=== PATIENT | female | born 1940 | race Hispanic/Latino ===

== ENCOUNTER 2018-10-19 12:21 | Inpatient (IN) | payer MEDICARE ==
[~2018-10-19] VITALS: Ht 157.5 cm; Wt 69.4 kg
[2018-10-19] MEDS ORDERED: PANTOPRAZOLE SO20 MG PO (13:50)
[2018-10-19] MEDS ORDERED: PROPRANOLOL HCL10 MG PO (13:50)
[2018-10-19 13:57] LABS: BILIRUBIN,URINE NEGATIVE (NEGATIVE); CLARITY,URINE SL CLOUDY (CLEAR); COLOR,URINE YELLOW (YELLOW); KETONES,URINE NEGATIVE (NEGATIVE); LEUKOCYTE ESTERASE ,URINE TRACE (NEGATIVE); NITRITE,URINE NEGATIVE (NEGATIVE); PROTEIN,URINE DIPSTICK NEGATIVE (NEGATIVE); URINE UROBILINOGEN 0.2 mg/dL (0.2 - 1)
[2018-10-19 13:59] LABS: BASOPHILS # (AUTO) 0.1 (0.0-0.1); BASOPHILS % 1.6 % (0.0-1.0); EOSINOPHILS # (AUTO) 0.2 (0.0-0.4); EOSINOPHILS % 3.7 % (0.0-6.0); HEMATOCRIT 28.8 % (34.2-44.1); HEMOGLOBIN 10.1 g/dL (12.0-16.0); LYMPHOCYTES # (AUTO) 1.2 (1.0-3.2); LYMPHOCYTES % 20.8 % (18.0-39.1); MEAN CORPUSCULAR HEMOGLOBIN 34.6 pg (28-32); MEAN CORPUSCULAR HGB CONC 35.1 g/dL (31-35); MEAN CORPUSCULAR VOLUME 98.6 fL (81-99); MONOCYTES # (AUTO) 1.1 (0.2-0.8); MONOCYTES % 20.1 % (4.4-11.3); NEUTROPHILS % 53.6 % (38.7-80.0); PLATELET COUNT 241 x10e3/uL (140-360); RED BLOOD COUNT 2.92 x10e6/uL (3.6-5.1); RED CELL DISTRIBUTION WIDTH 13.4 % (11.7-14.4)
[2018-10-19 14:01] LABS: INR 1.24; PROTHROMBIN TIME 16.2 seconds (11.9-14.5)
[2018-10-19 14:02] LABS: PARTIAL THROMBOPLASTIN TIME 39.1 seconds (23.8-35.5)
[2018-10-19 14:09] LABS: ALANINE AMINOTRANSFERASE 20 IU/L (0-55); ALBUMIN 2.7 g/dL (3.5-5.0); ALBUMIN/GLOBULIN RATIO 0.8 (0.8-2.0); ALKALINE PHOSPHATASE 77 IU/L (40-150); ANION GAP 11.6 mmol/L (8-16); BLOOD UREA NITROGEN 29 mg/dL (7-26); BUN/CREATININE RATIO 18 (6-25); CARBON DIOXIDE 18 mmol/L (22-29); CHLORIDE 104 mmol/L (98-107); CREATININE, SERUM 1.64 mg/dL (0.57-1.11); EST GLOMERULAR FILTRATION RATE 30 ML/MIN (60-); GLUCOSE 81 mg/dL (74-118); SODIUM 126 mmol/L (136-145)
[2018-10-19 14:13] LABS: POTASSIUM 7.6 mmol/L (3.5-5.1)
[2018-10-19 14:22] LABS: BACTERIA,URINE MANY /HPF; EPITHELIAL CELLS,URINE MODERATE /LPF; RBC,URINE 0-5 /HPF (0-5)
[2018-10-19] MEDS ORDERED: DEXTROSE 50% SYRINGE 50 ML IV ONE (14:26)
[2018-10-19] MEDS ORDERED: SODIUM BICARBONATE 8.4% 50 ML VIAL IV ONE (14:26)
--- NOTE | 2018-10-19 14:28 | Diagnostic Imaging Report ---
Examination: Single AP view of the chest. COMPARISON: None. INDICATION: Chest pain DISCUSSION: The lungs are well-inflated. No focal airspace consolidation, pleural effusion, or pneumothorax. Irregular, dense nodular opacities projecting adjacent to the cardiac apex may reflect calcific changes of the anterior costochondral junction. Atherosclerotic calcification of the thoracic aorta. Otherwise normal heart size. No pulmonary edema. No acute osseous abnormality. IMPRESSION: Dense nodular opacities adjacent to the cardiac apex may reflect costochondral calcifications or calcified granulomata. Follow-up PA and lateral chest radiographs are suggested when clinically feasible for further evaluation. Otherwise no acute cardiopulmonary abnormality. Signed by: Dr. Sandeep Wright M.D. on 10/19/2018 2:24 PM
[2018-10-19] MEDS ORDERED: INSULIN REGULAR, HUMAN 100 UNIT/1 ML 3ML VIAL IV ONE (14:30)
[2018-10-19] MEDS ORDERED: CALCIUM GLUCONATE 10% INJ 4.65 MEQ in SODIUM CHLORIDE 0.9% 50ML 50 ML IV ONE (14:30)
--- NOTE | 2018-10-19 14:39 | NUR ---
Dr. River states to repeat K+ before administered any ordered medications. Repeat blood sent to lab.
--- NOTE | 2018-10-19 15:29 | Diagnostic Imaging Report ---
EXAMINATION: CT of the abdomen and pelvis without contrast. TECHNIQUE: Spiral CT images of the abdomen and pelvis were performed from the lung bases to the lesser trochanters. No intravenous contrast was given per renal stone protocol. Coronal and sagittal reformatted images were obtained. COMPARISON: None. CLINICAL HISTORY:Abdominal distention, cirrhosis DISCUSSION: ABSENCE OF INTRAVENOUS CONTRAST DECREASES SENSITIVITY FOR DETECTION OF FOCAL LESIONS AND VASCULAR PATHOLOGY. ABDOMEN/PELVIS: LOWER THORAX: Opacity adjacent to the cardiac apex on the comparison chest radiograph is shown to represent a small diaphragmatic hernia containing omental fat and ascitic fluid. 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 Lung bases are otherwise unremarkable. Mitral annular calcifications. HEPATOBILIARY:Shrunken nodular liver with relative hypertrophy of the left lobe compatible with cirrhosis. 2.5 cm low-attenuation lesion in segment 6-7, average internal attenuation-type 10 Hounsfield units, likely a simple cyst but incompletely characterized in the absence of intravenous contrast. The gallbladder has been removed. No biliary dilatation. Plastic stent traverses the distal common bile duct and terminates in the duodenum. SPLEEN: No splenomegaly. PANCREAS: No focal masses or ductal dilatation. ADRENALS: No adrenal nodules. KIDNEYS/URETERS: Probable simple cyst left lower pole, average attenuation 5-10 Hounsfield units, though incompletely characterized in the absence of intravenous contrast. No hydronephrosis or calculi. PELVIC ORGANS/BLADDER: Urinary bladder is poorly distended and incompletely evaluated. Uterus is not identified and has presumably been removed. PERITONEUM/RETROPERITONEUM: Large volume ascites. No pneumoperitoneum. LYMPH NODES: No intra-abdominal,retroperitoneal, pelvic or inguinal lymphadenopathy. VESSELS: Limited evaluation without intravenous contrast. The abdominal aorta is not aneurysmal. Probable esophageal varices. GI TRACT: The large bowel is notable for scattered descending and sigmoid colon diverticula without gross wall thickening. The ascending and transverse colon is collapsed and poorly evaluated. No small bowel dilatation to suggest obstruction. BONES AND SOFT TISSUES: Umbilical hernia contains ascitic fluid. Mild anasarca. No osseous destructive lesions. Multiple calcified soft tissue injection granulomata. IMPRESSION: Cirrhosis with portal hypertension evidenced by large volume ascites and probable esophageal varices, poorly evaluated without intravenous contrast. Probable hepatic and left renal cyst, incompletely evaluated without intravenous contrast. Liver mass protocol CT or MRI of the abdomen on outpatient basis is suggested for further evaluation. Large bowel diverticulosis without evidence of diverticulitis. Atherosclerotic vascular disease. Signed by: Dr. Sandeep Wright M.D. on 10/19/2018 3:25 PM
--- NOTE | 2018-10-19 15:57 | NUR ---
Consent obtained and with official gripper installer [id number] through [employer] link.
[2018-10-19] MEDS ORDERED: ONDANSETRON HCL INJ 2MG/ML 2ML 2 MG/ML VIAL IV PRN (16:30)
--- NOTE | 2018-10-19 17:11 | NUR ---
[facility].
--- OUTSIDE RECORDS SUMMARY | 2018-10-19 17:12 | XMS REPORT ---
[facility] Address Unknown Phone Unavailable Care Team Providers Care Wire Steward Name Role Phone Maribel SMITH Unavailable Unavailable Problems This patient has no known problems. Allergies, Adverse Reactions, Alerts This patient has no known allergies or adverse reactions. Medications This patient has no known medications. Results Test Description Test Time Test Comments Text Results Atomic Results Result Comments CT ABDOMEN/PELVIS WO 2018-10-19 15:09:00 [facility] [address] [place], [place] [address] Patient Name: KRZYSZTOF OSULLIVAN MR #: [id number] : 1940 Age/Sex: 77/F Req #: [id number] Adm Physician: Ordered by: IRENA SMITH MD Report #: [id number] Location: ER Room/Bed: Procedure: [id number] CT/CT ABDOMEN/PELVIS WO Exam Date: 10/19/18 Exam Time: 1448 REPORT STATUS: Signed EXAMINATION: CT of the abdomen and pelvis without cont rast. TECHNIQUE: Spiral CT images of the abdomen and pelvis were performed from the lung bases to the lesser trochanters. No intravenous contrast was given per renal stone protocol. Coronal and sagittal reformatted images were obtained. COMPARISON: None. CLINICAL HISTORY:Abdominal distention, cirrhosis DISCUSSION: ABSENCE OF INTRAVENOUS CONTRAST DECREASES SENSITIVITY FOR DETECTION OF FOCAL LESIONS AND VASCULAR PATHOLOGY. ABDOMEN/PELVIS: LOWER THORAX: Opacity adjacent to the cardiac apex on the comparison chest radiograph is shown to represent a small diaphragmatic hernia containing omental fat and ascitic fluid. 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 Lung bases are otherwise unremarkable. Mitral annular calcifications. HEPATOBILIARY:Shrunken nodular liver with relative hypertrophy of the left lobe compatible with cirrhosis. 2.5 cm low-attenuation lesion in segment 6-7, average internal attenuation-type 10 Hounsfield units, likely a simple cyst but incompletely characterized in the absence of intravenous contrast. The gallbladder has been removed. No biliary dilatation. Plastic stent traverses the distal common bile duct and terminates in the duodenum. SPLEEN: No splenomegaly. PANCREAS: No focal masses or ductal dilatation. ADRENALS: No adrenal nodules. KIDNEYS/URETERS: Probable simple cyst left lower pole, average attenuation 5-10 Hounsfield units, though incompletely characterized in the absence of intravenous contrast. No hydronephrosis or calculi. PELVIC ORGANS/BLADDER: Urinary bladder is poorly distended and incompletely evaluated. Uterus is not identified and has presumably been removed. PERITONEUM/RETROPERITONEUM: Large volume ascites. No pneumoperitoneum. LYMPH NODES: No intra-abdominal,retroperitoneal, pelvic or inguinal lymphadenopathy. VESSELS: Limited evaluation without intravenous contrast. The abdominal aorta is not aneurysmal. Probable esophageal varices. GI TRACT: The large bowel is notable for scattered descending and sigmoid colon diverticula without gross wall thickening. The ascending and transverse colon is collapsed and poorly evaluated. No small bowel dilatation to suggest obstruction. BONES AND SOFT TISSUES: Umbilical hernia contains ascitic fluid. Mild anasarca. No osseous destructive lesions. Multiple calcified soft tissue injection granulomata. IMPRESSION: Cirrhosis with portal hypertension evidenced by large volume ascites and probable esophageal varices, poorly evaluated without intravenous contrast. Probable hepatic and left renal cyst, incompletely evaluated without intravenous contrast. Liver mass protocol CT or MRI of the abdomen on outpatient basis is suggested for further evaluation. Large bowel diverticulosis without evidence of diverticulitis. Atherosclerotic vascular disease. Signed by: Dr. Courtney Merino M.D. on 10/19/2018 3:25 PM Dictated By: COURTNEY MERINO MD 1525 Transcribed By: RADHA on 10/19/18 1525 COPY TO: IRENA SMITH MD CHEST SINGLE (PORTABLE) 2018-10-19 14:22:00 [facility] [address] [place] [address] Patient Name: KRZYSZTOF OSULLIVAN MR #: [id number] : 1940 Age/Sex: 77/F Req #: [id number] Adm Physician: Ordered by: IRENA SMITH MD Report #: [id number] Location: ER Room/Bed: Procedure: [id number] DX/CHEST SINGLE (PORTABLE) Exam Date: 10/19/18 Exam Time: 1340 REPORT STATUS: Signed Examination: Single AP view of the chest. COMP ARISON: None. INDICATION: Chest pain DISCUSSION: The lungs are well-inflated. No focal airspace consolidation, pleural effusion, or pneumothorax. Irregular, dense nodular opacities projecting adjacent to the cardiac apex may reflect calcific changes of the anterior costochondral junction. Atherosclerotic calcification of the thoracic aorta. Otherwise normal heart size. No pulmonary edema. No acute osseous abnormality. IMPRESSION: Dense nodular opacities adjacent to the cardiac apex may reflect costochondral calcifications or calcified granulomata. Follow-up PA and lateral chest radiographs are suggested when clinically feasible for further evaluation. Otherwise no acute cardiopulmonary abnormality. Signed by: Dr. Courtney Merino M.D. on 10/19/2018 2:24 PM Dictated By: COURTNEY MERINO MD 1428 Transcribed By: RADHA on 10/19/18 5935 COPY TO: IRENA SMITH MD
[2018-10-19] MEDS: CEFEPIME 2 GM/NS 0.9% 100 ML 100 ML IV SCH (17:24)
--- NOTE | 2018-10-19 17:28 | NUR ---
Consent for hemodialysis obtained at this time.
[2018-10-19] MEDS ORDERED: SODIUM BICARBONATE 8.4% 50 ML VIAL IV STA ×2 (17:36→17:42)
[2018-10-19] MEDS ORDERED: SODIUM BICARBONATE 8.4% SYRING 50 ML ONE (17:42)
[2018-10-19] MEDS ORDERED: SODIUM BICARBONATE 8.4% 150 ML in STERILE WATER IV SOLN 1,000 ML IV SCH (18:15)
[2018-10-19] MEDS ORDERED: SOD POLYSTYRENE SULFONATE SUSP 15 GM/60 ML BTL PO ONE (18:45)
[2018-10-19] MEDS ORDERED: LACTULOSE SYRUP 20 GM/30 ML UDC PO ONE (18:45)
--- NOTE | 2018-10-19 19:04 | NUR ---
[facility] called and asked for ETA for hemodialysis. Awaiting to call back.
--- NOTE | 2018-10-19 19:26 | NUR ---
Report to CECILIA Bah. Dialysis nurse at bedside.
[2018-10-19] MEDS ORDERED: SODIUM CHLORIDE 0.9% 1000ML 2,000 ML ONE (20:08)
[2018-10-19] MEDS ORDERED: MANNITOL 25% 12.5GM/50 ML VIAL IV ONE ×2 (21:00)
--- NOTE | 2018-10-19 21:00 | NUR ---
DIALYSIS NURSE AT BEDSIDE, DIALYSIS STATRTED VSS
[2018-10-19 21:08] LABS: CREATININE,URINE RANDOM 155.52 mg/dL (47-110)
[2018-10-19 21:10] LABS: SODIUM,URINE < 20 mmol/L
[2018-10-19] MEDS ORDERED: HEPARIN SOD (PORCINE) 1000 UNIT/ML SDV ONE (22:22)
[2018-10-19 23:00] LABS: CREATINE KINASE 51 IU/L (29-168)
[2018-10-19 23:02] LABS: CREATINE KINASE MB 1.1 ng/mL (0-5.0)
--- NOTE | 2018-10-19 23:25 | NUR ---
DIALYSIS COMPLETE, PT TOLERATED WELL, BP 98/63
[2018-10-20] VITALS (20 sets, daily range): BP systolic 85–115; BP diastolic 49–68
--- NOTE | 2018-10-20 00:41 | Consultation ---
DATE OF CONSULTATION: 10/19/2018 Most of the history from patient's malqivvc-un-upa and daughter. Several family members at bedside. HISTORY OF PRESENT ILLNESS: Maria L Montoya is a 77-year-old lady, who lives in [place]. She came here to visit her children. She is followed up with the liver center. 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 She gets frequent paracentesis. She also has an umbilical hernia. No history of diabetes, CVA, or MT. Apparently, they received a call from the their liver doctors in [place], who informed them that her potassium level was elevated, which is why they brought into the hospital. The patient awake, alert, resting comfortably, in no apparent distress. Her initial lab showed a potassium level of 7.6, which went up to 8.1. She received urgent treatment for high potassium in the emergency room. Furthermore, labs show sodium 126, bicarb 18, creatinine 1.64. BNP of 307. SOCIAL HISTORY: The patient does not smoke or drink. FAMILY HISTORY: Significant for hypertension. CURRENT MEDICATIONS: The patient received urgent treatment for hyperkalemia, also started on cefepime. PHYSICAL EXAMINATION: GENERAL: Awake, alert, and oriented x3, lying supine in bed, in no apparent distress. VITAL SIGNS: Blood pressure of 111/38, pulse rate 45, afebrile, respiratory rate 18. HEAD AND NECK: Cornea clear. Mild icterus noted if at all. Neck is flat. LUNGS: Relatively clear. No rales. HEART: S1, S2 audible. ABDOMEN: Otherwise soft, nontender, but distended. Umbilical hernia reducible. EXTREMITIES: Lower extremity, no edema. IMPRESSION AND PLAN: 1. Life-threatening hyperkalemia with acute kidney injury. Must rule out hepatorenal syndrome. Plan on urgent stat hemodialysis catheter placement and stat dialysis. We will start IV bicarbonate. 2. Hyponatremia, multifactorial, likely due to cirrhosis and portal hypertension. Mild distal RTA, multifactorial, must rule out infection. Abdomen is soft, although has evidence of ascites, so no urgent need for paracentesis at this point in time. Agree with antibiotics. We will start IV bicarbonate. Place a Nunez catheter. Send urine electrolytes. Must rule out hepatorenal syndrome. MD PATSY Ojeda/GEORGINA /[id number]
[2018-10-20 03:46] LABS: ANION GAP 12.3 mmol/L (8-16); CALCIUM 8.4 mg/dL (8.4-10.2); CREATININE, SERUM 1.29 mg/dL (0.57-1.11)
[2018-10-20 04:08] LABS: POTASSIUM 4.3 mmol/L (3.5-5.1)
[2018-10-20 04:30] LABS: BASOPHILS # (AUTO) 0.1 (0.0-0.1); EOSINOPHILS # (AUTO) 0.1 (0.0-0.4); EOSINOPHILS % 1.9 % (0.0-6.0); LYMPHOCYTES # (AUTO) 1.1 (1.0-3.2); LYMPHOCYTES % 16.2 % (18.0-39.1); MEAN CORPUSCULAR HEMOGLOBIN 34.9 pg (28-32); MEAN CORPUSCULAR VOLUME 96.9 fL (81-99); MONOCYTES # (AUTO) 1.4 (0.2-0.8); MONOCYTES % 19.4 % (4.4-11.3); NEUTROPHILS # (AUTO) 4.3 (2.1-6.9); NEUTROPHILS % 61.2 % (38.7-80.0); PLATELET COUNT 179 x10e3/uL (140-360); RED BLOOD COUNT 2.58 x10e6/uL (3.6-5.1); RED CELL DISTRIBUTION WIDTH 13.5 % (11.7-14.4)
[2018-10-20] MEDS: CEFEPIME 2 GM/NS 0.9% 100 ML 100 ML IV SCH ×2 (04:40→15:56)
[2018-10-20 04:53] LABS: ALBUMIN 2.4 g/dL (3.5-5.0); ALBUMIN/GLOBULIN RATIO 0.9 (0.8-2.0); ANION GAP 13.4 mmol/L (8-16); CALCIUM 8.4 mg/dL (8.4-10.2); CREATININE, SERUM 1.32 mg/dL (0.57-1.11); POTASSIUM 4.4 mmol/L (3.5-5.1)
[2018-10-20 04:55] LABS: CREATINE KINASE MB 1.1 ng/mL (0-5.0)
[2018-10-20] MEDS ORDERED: ACETAMINOPHEN 325 MG TAB PO PRN (08:00)
[2018-10-20] MEDS: PANTOPRAZOLE SOD 40 MG TABEC PO SCH ×2 (08:13→15:56)
[2018-10-20] MEDS: DEXTROSE 5% 1,000 ML IV SCH ×2 (08:58→19:38)
[2018-10-20] MEDS ORDERED: NON-FORMULARY MEDICATION (Pantoprazole Sodium 40 MG) PO SCH (09:00)
[2018-10-20] MEDS ORDERED: FUROSEMIDE INJ 10 MG/ML 4 ML VIAL IV SCH (09:00)
[2018-10-20] MEDS ORDERED: PROPRANOLOL HCL 10 MG TAB PO SCH (09:00)
[2018-10-20 13:28] LABS: INR 1.35; PROTHROMBIN TIME 17.3 seconds (11.9-14.5)
[2018-10-20 13:29] LABS: PARTIAL THROMBOPLASTIN TIME 40.7 seconds (23.8-35.5)
--- NOTE | 2018-10-20 21:27 | NUR ---
Received report for positive cocci in clusters for patient, CHUYITA Means made aware.
[2018-10-21] VITALS (12 sets, daily range): BP systolic 89–106; BP diastolic 56–64
[2018-10-21] MEDS: CEFEPIME 2 GM/NS 0.9% 100 ML 100 ML IV SCH ×2 (05:24→16:20)
[2018-10-21] MEDS: DEXTROSE 5% 1,000 ML IV SCH ×3 (06:14→23:38)
[2018-10-21] MEDS ORDERED: ACETAMINOPHEN 325 MG TAB PO PRN (06:45)
[2018-10-21] MEDS ORDERED: ACETAMINOPHEN/CODEINE 300MG - 30MG TAB PO PRN (07:00)
[2018-10-21 07:03] LABS: BASOPHILS # (AUTO) 0.1 (0.0-0.1); BASOPHILS % 1.1 % (0.0-1.0); EOSINOPHILS # (AUTO) 0.3 (0.0-0.4); EOSINOPHILS % 3.8 % (0.0-6.0); HEMATOCRIT 24.2 % (34.2-44.1); HEMOGLOBIN 8.6 g/dL (12.0-16.0); LYMPHOCYTES # (AUTO) 1.3 (1.0-3.2); LYMPHOCYTES % 18.2 % (18.0-39.1); MEAN CORPUSCULAR HGB CONC 35.5 g/dL (31-35); MEAN CORPUSCULAR VOLUME 98.4 fL (81-99); MONOCYTES # (AUTO) 1.6 (0.2-0.8); MONOCYTES % 23.2 % (4.4-11.3); NEUTROPHILS # (AUTO) 3.7 (2.1-6.9); NEUTROPHILS % 53.4 % (38.7-80.0); PLATELET COUNT 149 x10e3/uL (140-360); RED BLOOD COUNT 2.46 x10e6/uL (3.6-5.1); RED CELL DISTRIBUTION WIDTH 13.4 % (11.7-14.4)
--- NOTE | 2018-10-21 07:17 | NUR ---
Patient endorsed to next shift for continuity of care.
[2018-10-21 07:23] LABS: ALBUMIN 2.1 g/dL (3.5-5.0); ALBUMIN/GLOBULIN RATIO 0.8 (0.8-2.0); ANION GAP 11.7 mmol/L (8-16); CALCIUM 7.9 mg/dL (8.4-10.2); CREATININE, SERUM 1.84 mg/dL (0.57-1.11); POTASSIUM 3.7 mmol/L (3.5-5.1)
[2018-10-21 08:03] LABS: FERRITIN 240.12 ng/mL (4.63-204.00)
[2018-10-21] MEDS: PANTOPRAZOLE SOD 40 MG TABEC PO SCH ×2 (09:29→16:20)
--- NOTE | 2018-10-21 13:40 | NUR ---
PATIENT ARRIVED TO ROOM 100 AT THIS TIME. FAMILY AT BEDSIDE. PATIENT IS IN STABLE CONDITION. NO ACUTE DISTRESS NOTED.
--- NOTE | 2018-10-21 19:07 | NUR ---
REPORT GIVEN TO ONCOMING NURSE. PATIENT IS RESTING IN BED. NO S/S OF PAIN NOTED. FAMILY AT BEDSIDE. CALL LIGHT WITHIN REACH. BED IN THE LOWEST POSITION.
[2018-10-21] MEDS ORDERED: MELATONIN 5 MG TABLET PO PRN (21:00)
[2018-10-22] VITALS (8 sets, daily range): BP systolic 91–115; BP diastolic 51–61
[2018-10-22] MEDS ORDERED: ZOLPIDEM TARTRATE 10 MG TAB PO PRN (04:15)
[2018-10-22] MEDS ORDERED: BISACODYL 5 MG TAB EC PO ONE (04:15)
[2018-10-22] MEDS: CEFEPIME 2 GM/NS 0.9% 100 ML 100 ML IV SCH ×2 (04:48→18:20)
[2018-10-22 05:55] LABS: BASOPHILS # (AUTO) 0.1 (0.0-0.1); BASOPHILS % 1.2 % (0.0-1.0); EOSINOPHILS # (AUTO) 0.3 (0.0-0.4); EOSINOPHILS % 4.8 % (0.0-6.0); LYMPHOCYTES # (AUTO) 1.3 (1.0-3.2); LYMPHOCYTES % 19.5 % (18.0-39.1); MEAN CORPUSCULAR HEMOGLOBIN 35.2 pg (28-32); MEAN CORPUSCULAR HGB CONC 36.4 g/dL (31-35); MEAN CORPUSCULAR VOLUME 96.9 fL (81-99); MONOCYTES # (AUTO) 1.4 (0.2-0.8); MONOCYTES % 20.2 % (4.4-11.3); NEUTROPHILS # (AUTO) 3.6 (2.1-6.9); NEUTROPHILS % 53.7 % (38.7-80.0); PLATELET COUNT 141 x10e3/uL (140-360); RED BLOOD COUNT 2.27 x10e6/uL (3.6-5.1); RED CELL DISTRIBUTION WIDTH 13.2 % (11.7-14.4)
[2018-10-22 06:09] LABS: ANION GAP 8.6 mmol/L (8-16); CALCIUM 7.6 mg/dL (8.4-10.2); CREATININE, SERUM 1.59 mg/dL (0.57-1.11); POTASSIUM 3.6 mmol/L (3.5-5.1)
[2018-10-22 06:30] LABS: ALBUMIN 1.9 g/dL (3.5-5.0); BILIRUBIN,DIRECT 0.9 mg/dL (0.0-0.5)
--- NOTE | 2018-10-22 06:44 | NUR ---
Dr. Valencia paged regarding lab values, message left with answering service
--- NOTE | 2018-10-22 07:10 | NUR ---
Pt received resting in bed. Alert and oriented x3 but Mauritanian speaking only. NPO for Paracentesis. Oriented to staff and surroundings. Encouraged to press call talamantes if help needed. Pt verbalized understanding of teaching. Will monitor
[2018-10-22] MEDS: PANTOPRAZOLE SOD 40 MG TABEC PO SCH ×2 (08:32→20:37)
--- NOTE | 2018-10-22 10:05 | NUR ---
Pt left for Paracentesis in bed.
--- NOTE | 2018-10-22 11:09 | NUR ---
EDUCATED ABOUT IMM, SIGNED, FILED IN CHART, WITH COPY LEFT WITH FAMILY AT BEDSIDE.
--- NOTE | 2018-10-22 11:12 | NUR ---
Pt returned to Unit s/p Paracentesis. 4.8L fluid pulled as per report
--- NOTE | 2018-10-22 11:28 | Diagnostic Imaging Report ---
Procedure: Ultrasound-guided diagnostic and therapeutic paracentesis rotary operator: Ritu Cordero MD Pre-operative diagnosis: Ascites Post-operative diagnosis: Ascites Conscious Sedation: The patient's heart rate and pulse oximetry were continuously monitored by the IR nurse. Additional Medications: Lidocaine 1% for local anesthesia Estimated blood loss: Minimal Specimens: 4800 cc of serous ascites Implants: None TECHNIQUE/FINDINGS: Informed consent was obtained from the patient and documented in the medical record. The patient was placed in the supine position. Initial ultrasound demonstrated ascites. The right lower abdomen was prepped and draped in standard sterile fashion. 1% lidocaine was infiltrated into the skin and subcutaneous tissues for local anesthesia. Then under continuous sonographic guidance, a 5 Fr One-step catheter was advanced into the peritoneal space. The catheter was connected to vacuum bottle with subsequent evacuation of 4800 cc of serous fluid. The catheter was removed. Dermabond and sterile dressing was applied. Sample was sent to the lab. The patient tolerated the procedure well. IMPRESSION: Ultrasound-guided paracentesis with removal of 4800 cc of serous fluid. Signed by: Ritu Cordero MD on 10/22/2018 11:25 AM
--- NOTE | 2018-10-22 18:56 | NUR ---
Pt's family requesting for Protonix to be given later because pt "just fell asleep". Will endorse to next shift
--- NOTE | 2018-10-22 19:28 | NUR ---
Pt resting in bed with family at bedside. Handoff given to oncoming nurse regarding removal of Trialysis cath.
[2018-10-22] MEDS ORDERED: SODIUM CHLORIDE 1 GM TAB PO SCH (21:00)
[2018-10-23] VITALS (9 sets, daily range): BP systolic 76–96; BP diastolic 50–60
[2018-10-23] MEDS ORDERED: MECLIZINE HCL 12.5 MG TAB PO ONE
[2018-10-23 04:05] LABS: BASOPHILS # (AUTO) 0.1 (0.0-0.1); BASOPHILS % 0.9 % (0.0-1.0); EOSINOPHILS # (AUTO) 0.3 (0.0-0.4); EOSINOPHILS % 4.3 % (0.0-6.0); HEMATOCRIT 23.9 % (34.2-44.1); HEMOGLOBIN 8.4 g/dL (12.0-16.0); LYMPHOCYTES # (AUTO) 1.3 (1.0-3.2); LYMPHOCYTES % 17.6 % (18.0-39.1); MEAN CORPUSCULAR HEMOGLOBIN 34.1 pg (28-32); MEAN CORPUSCULAR HGB CONC 35.1 g/dL (31-35); MEAN CORPUSCULAR VOLUME 97.2 fL (81-99); MONOCYTES # (AUTO) 1.3 (0.2-0.8); MONOCYTES % 16.9 % (4.4-11.3); NEUTROPHILS # (AUTO) 4.5 (2.1-6.9); NEUTROPHILS % 59.8 % (38.7-80.0); PLATELET COUNT 167 x10e3/uL (140-360); RED BLOOD COUNT 2.46 x10e6/uL (3.6-5.1); RED CELL DISTRIBUTION WIDTH 13.2 % (11.7-14.4)
[2018-10-23 04:14] LABS: ANION GAP 13.1 mmol/L (8-16); CALCIUM 7.6 mg/dL (8.4-10.2); CREATININE, SERUM 1.51 mg/dL (0.57-1.11); POTASSIUM 4.1 mmol/L (3.5-5.1)
[2018-10-23] MEDS ORDERED: SODIUM CHLORIDE 1 GM TAB PO SCH (04:45)
[2018-10-23] MEDS: MECLIZINE HCL 12.5 MG TAB PO SCH ×2 (05:08→12:39)
[2018-10-23] MEDS: CEFEPIME 2 GM/NS 0.9% 100 ML 100 ML IV SCH ×2 (05:08→17:00)
--- NOTE | 2018-10-23 05:30 | NUR ---
Dr. Bruno is covering for Dr. Valencia, informed him on critical lab value, no orders received at this time
--- NOTE | 2018-10-23 05:55 | Diagnostic Imaging Report ---
History:Dizziness Comparison studies:None Technique: Axial images were obtained from the skull base to the vertex. Coronal and sagittal images reconstructed from the axial data. Intravenous contrast: None Dose modulation, iterative reconstruction, and/or weight based adjustment of the mA/kV was utilized to reduce the radiation dose to as low as reasonably achievable. Findings: Scalp/skull: No abnormalities. Extra-axial spaces: No masses. No fluid collections. Brain sulci: Mildly prominent. Ventricles: Mild compensatory dilatation. No hydrocephalus. Parenchyma: Few hypodensities in the supratentorial white matter are small vessel ischemic changes. No masses, hemorrhage, acute or chronic cortical vascular insults. Sellar/suprasellar region: No abnormalities. Craniocervical junction: Patent foramen magnum. No Chiari one malformation. Incidental findings: Atherosclerotic calcifications in the carotid siphons . Impression: No acute abnormalities. Chronic findings: 1. Mild generalized volume loss. 2. Mild supratentorial white matter small vessel ischemic changes. Signed by: DR Albino Hardy M.D. on 10/23/2018 5:52 AM
--- NOTE | 2018-10-23 06:17 | Diagnostic Imaging Report ---
Abdomen/KUB INDICATION: ^CONSTIPATION, N/V ^[id number] ^0550 COMPARISON: CT abdomen/pelvis 10/11/2018. FINDINGS: Portable, supine image obtained at 0548 hours. Medical Devices: Common bile duct stent and cholecystectomy clips are stable. Bowel: Unremarkable bowel gas pattern. No dilated bowel loops. No pneumatosis. Mild amount of stool in the right colon. No significant amount of stool in the descending colon. Free air: None Calcifications: None over the renal shadows or along the expected course of the ureters Organomegaly: None Bones: Diffusely demineralized. No focal osseous lesions. IMPRESSION: Unremarkable bowel gas pattern. Signed by: Dr. Casey Melara MD on 10/23/2018 6:13 AM
[2018-10-23 07:05] LABS: FREE T4 (FREE THYROXINE) 0.8 ng/dL (0.8-1.8); THYROID STIMULATING HORMONE 6.148 uIU/mL (0.350-4.940)
--- NOTE | 2018-10-23 07:05 | NUR ---
pt asleep resp even and unlabored at time no distress noted pt easily aroused to name and touch, pt has family member at bedside. call light in reach.
--- NOTE | 2018-10-23 07:11 | NUR ---
Per order R IJ Trialysis cath d/c, removed catheter w/ tip intact, pressure gauze placed
[2018-10-23] MEDS: FUROSEMIDE 20 MG TAB PO SCH (08:38)
[2018-10-23] MEDS: MIDODRINE 2.5 MG TAB PO SCH ×3 (08:38→17:50)
[2018-10-23] MEDS: METOCLOPRAMIDE HCL 10 MG/2ML VIAL IV SCH ×4 (08:38→21:52)
[2018-10-23] MEDS: MEGESTROL ACETATE 40 MG TAB PO SCH ×2 (08:38→17:00)
[2018-10-23] MEDS: PANTOPRAZOLE SOD 40 MG TABEC PO SCH ×2 (08:38→17:00)
--- NOTE | 2018-10-23 10:54 | NUR ---
CALLED [facility] [phone] SPOKE WITH ATA, SHE STATES PATIENT DOES NOT HAVE OUT OF STATE BENEFITS AND THE PT IS REGISTERED IN THE [facility]. WAS GIVEN REFERENCE NUMBER [id number].
--- NOTE | 2018-10-23 12:22 | NUR ---
CM SPOKE TO PATIENT AND PATIENT DAUGHTER AT BEDSIDE REGARDING PATIENT DISCHARGE PLAN AND PLAN OF CARE. PATIENT CURRENTLY INDECISIVE WHETHER SHE IS STAYING IN [place] OR RETURNING TO [place] WITH DAUGHTER. DAUGHTER AT BEDSIDE REQUESTS FOR CM TO SPEAK WITH PATIENT OTHER DAUGHTER JOMAR REGARDING PLAN OF CARE AND DISCHARGE PLAN. CM CALLED AND LM FOR JOMAR TO RETURN CALL REGARDING PATIENT PLAN OF CARE AND DISCHARGE PLAN. JOMAR- DAUGHTER: [phone]. PENDING RETURN CALL FOR CM TO DISCUSS HOME HEALTH IN [place] OR RETURN TO [place] AND VISIT PCP FOR SNF VS. HOME HEALTH ORDERS.
[2018-10-23 13:15] LABS: ANION GAP 11.2 mmol/L (8-16); CALCIUM 7.6 mg/dL (8.4-10.2); CREATININE, SERUM 1.55 mg/dL (0.57-1.11); POTASSIUM 4.2 mmol/L (3.5-5.1)
[2018-10-23] MEDS ORDERED: SODIUM CHLORIDE 1 GM TAB PO NR (14:15)
[2018-10-23] MEDS ORDERED: SODIUM CHLORIDE 0.9% 1000ML 1,000 ML IV SCH (14:15)
--- NOTE | 2018-10-23 14:29 | NUR ---
bolus NS started orderer by ANGELO Bauman, sodium tablets given po 4 gram for critical value 115 sodium.
[2018-10-23] MEDS ORDERED: SODIUM CHLORIDE 1 GM TAB PO ONE (14:30)
[2018-10-23] MEDS ORDERED: FUROSEMIDE INJ 10 MG/ML 4 ML VIAL IV NR (15:30)
[2018-10-23] MEDS ORDERED: SODIUM CHLORIDE 0.45% IV SCH ×2 (15:30)
[2018-10-23] MEDS ORDERED: SODIUM BICARBONATE 8.4% IV SCH ×2 (15:30)
--- NOTE | 2018-10-23 16:52 | NUR ---
Nutrition Intervention Note RD Recommendation(s) for Physician: -Continue current diet as ordered -Rec adding Ensure Enlive BID to increase protein-calorie intake Plan of Care: RD following, monitoring for tolerance and adequacy, ONS rec Nutrition reason for involvement: MD consult no reason stated RD Assessment 10/23 - 77yo F, who was admitted for hyperkalemia. CT abd/ pel showed cirrhosis with portal hypertension evidenced by large volume ascites and probable esophageal varices. Pt has paracentesis yesterday with 4.8L fluids removed. Visited pt in the room. Pt was sleeping. Per family, pt was not eating well today with very little meal intake. No complains of nausea or vomiting. Normal BM. No chewing or swallowing difficulty reported. Family would like to try Ensure to see if pt would drink it. Will continue to monitor and follow. Principal Problems/Diagnoses: Hyperkalemia, ascites, cirrhosis, renal insufficiency PMH: liver failure GI: abdomen soft, non-tender, round, distended Skin: no pressure wound noted Labs: (10/23) Na 115 L, creatinine 1.55 H, Glucose 131 H, Ca 7.6 L Meds: reglan, lasix, protonix, abx Ht: 62in Wt: 153lb BMI: 28.0kg/m2 IBW: 110lb +/- 10% Malnutrition Evaluation (10/23/2018) The patient does not meet criteria for a specified degree of malnutrition at this time. Will re-evaluate at follow-up as appropriate. Nutrition Prescription (Diet Order): low sodium/ GI soft diet Estimated Nutritional Needs: Calories: 1250 1500kcal(25-30kcal/kg/d) Weight used: IBW Protein: 50-75g(1-1.5g/kg/d) Weight used: IBW Diet Adequacy: Not meeting calorie needs, Not meeting protein needs Diet Education Needs Assessment: Diet education indicated, but patient not appropriate for education at this time. Nutrition Care Level: low Nutrition Diagnosis: Inadequate energy intake related to current medical status as evidenced by PO <25% since admission. Goal: Patient will meet 75-100% of estimated needs by follow up Progress: Not progressing Interventions: Modified diet, Commercial beverage Monitoring/Evaluation: Total energy intake, Total protein intake, Modified diet, Liquid supplement, Weight change Signed: Malissa Bush MS, RD, LD
[2018-10-23] MEDS: SODIUM BICARBONATE 8.4% 100 ML in SODIUM CHLORIDE 0.45% 1,000 ML IV SCH (19:21)
--- NOTE | 2018-10-23 19:23 | NUR ---
report given to oncoming nurse, pt stable.
[2018-10-23] MEDS: SODIUM CHLORIDE 1 GM TAB PO SCH (21:52)
--- NOTE | 2018-10-23 23:09 | NUR ---
Family members requested for patient to be transferred to [facility]. The oldest son stated he would like for her to receive the same treatment that he had received. I did inform him although they both have the same disease process, doesn't necessarily mean that she will receive the same treatment, stated that he was okay with it and majority of the family members agreed for the patient to be transferred. However, Cecilia Montoya is the POA and had requested for her mom to only be transferred if it's what the recommends, she has been currently happy with the treatment here and would only agree if it's absolutely necessary, she is mostly concerned for her mom to get some rest. I did inform Dr. Doreen Oconnor and stated he was okay for the patient to be transferred to a higher acuity hospital, was advised to inform Dr. Henderson. Spoke ta/ CHUYITA Han who is covering Dr. Henderson, stated she was also okay with this, just to let Dr. Henderson know tomorrow during his rounds and provide him with the daughter's contact information.
[2018-10-24] VITALS (8 sets, daily range): BP systolic 82–110; BP diastolic 38–59
[2018-10-24] MEDS ORDERED: MIDODRINE 2.5 MG TAB PO ONE (01:00)
[2018-10-24 03:21] LABS: BASOPHILS # (AUTO) 0.1 (0.0-0.1); BASOPHILS % 1.2 % (0.0-1.0); EOSINOPHILS # (AUTO) 0.3 (0.0-0.4); EOSINOPHILS % 4.2 % (0.0-6.0); HEMOGLOBIN 8.2 g/dL (12.0-16.0); LYMPHOCYTES # (AUTO) 1.1 (1.0-3.2); LYMPHOCYTES % 16.3 % (18.0-39.1); MEAN CORPUSCULAR HEMOGLOBIN 34.5 pg (28-32); MEAN CORPUSCULAR HGB CONC 36.3 g/dL (31-35); MONOCYTES # (AUTO) 1.1 (0.2-0.8); MONOCYTES % 17.5 % (4.4-11.3); NEUTROPHILS # (AUTO) 3.9 (2.1-6.9); NEUTROPHILS % 60.2 % (38.7-80.0); PLATELET COUNT 163 x10e3/uL (140-360); RED BLOOD COUNT 2.38 x10e6/uL (3.6-5.1)
[2018-10-24 03:30] LABS: HEMATOCRIT 22.6 % (34.2-44.1)
[2018-10-24 03:37] LABS: ANION GAP 10.3 mmol/L (8-16); CALCIUM 7.3 mg/dL (8.4-10.2); CREATININE, SERUM 1.55 mg/dL (0.57-1.11); MAGNESIUM 1.3 MG/DL (1.3-2.1); POTASSIUM 4.3 mmol/L (3.5-5.1)
[2018-10-24] MEDS: CEFEPIME 2 GM/NS 0.9% 100 ML 100 ML IV SCH ×2 (04:28→16:46)
[2018-10-24] MEDS: LEVOTHYROXINE SODIUM 25 MCG TABLET PO SCH (06:04)
--- NOTE | 2018-10-24 07:00 | NUR ---
PT RESTING IN BED AA0X3. DAUGHTER IS AT BEDSIDE PT DENIES PAIN 0/10 IV FLUIDS TO THE RIGHT AC 20 WITH SODIUM BI AT 75CC.HR . SITE IS CLEAN AND DRY PT HAS A RHOADES CATH DRAINING NURY URINE. PT ABD IS DISTENDED (ASCITIC ) PT RUNNING SR ON TELEMETRY 02 AT 2L . NO SOB NOTED WILL CONTINUE TO MONITOR PT CLOSELY, SIDE RAILSX2, BED WHEELS LOCKED, CALL LIGHT IS WITHIN EASY REACH INSTRUCTED TO CALL FOR ASSISTANCE IF NEEDED
--- NOTE | 2018-10-24 07:11 | Diagnostic Imaging Report ---
Date and Time: 10/19/2018 Procedure: Image guided placement of nontunneled hemodialysis catheter. blind slat stapling machine operator: Dr. Wright Assistants: None Pre-operative diagnosis: Hyperkalemia, need for hemodialysis Post-operative diagnosis: Hyperkalemia, need for hemodialysis Conscious Sedation: None The patient's heart rate and pulse oximetry were continuously monitored. Additional Medications: Lidocaine 1% for local anesthesia Fluoroscopy time: 0.7 Dose-area Product: 0.93 Gycm2. Frontal Air Kerma: 4.24 mGy Contrast used: None Estimated blood loss: Minimal Specimens: None Implants: 13 Gambian, 15 cm triple-lumen hi flow central venous catheter DISCUSSION: Informed consent was obtained and documented in the medical record after discussion of risks and benefits. The patient was placed in the supine position on the fluoroscopic table. Preliminary sonographic evaluation confirmed patency of the right internal jugular vein, evidenced by compressibility. The right neck was prepped and draped in the standard sterile fashion. 1% lidocaine was infiltrated into the skin and subcutaneous tissues for local anesthesia. Then under continuous sonographic guidance, an 18-gauge singlewall needle was used to access the right internal jugular vein. A permanent sonographic image was stored in the medical record. A 0.0 3 5-in. wire was advanced centrally into the IVC under fluoroscopic guidance. The needle was removed over the wire and the tract was dilated. Then a 13 Gambian 15 cm triple-lumen hi flow central venous catheter was advanced over the wire to full depth. The wire was removed, and the catheter tip was positioned at the superior cavoatrial junction. Each lumen showed adequate bidirectional flow and was flushed with sterile saline. The catheter was secured to the skin with monofilament nylon suture and a sterile dressing was applied. The patient tolerated the procedure well without immediate complication. FINDINGS: Patent right internal jugular vein. IMPRESSION: Successful placement of a temporary hemodialysis catheter (13 Gambian, 15 cm Trialysis) by a right internal jugular approach under sonographic and fluoroscopic guidance. Signed by: Dr. Sandeep Wright M.D. on 10/24/2018 7:07 AM
[2018-10-24] MEDS: MEGESTROL ACETATE 40 MG TAB PO SCH ×2 (08:05→17:10)
[2018-10-24] MEDS: SODIUM CHLORIDE 1 GM TAB PO SCH ×3 (08:05→22:10)
[2018-10-24] MEDS: METOCLOPRAMIDE HCL 10 MG/2ML VIAL IV SCH ×4 (08:05→20:47)
[2018-10-24] MEDS: MIDODRINE 2.5 MG TAB PO SCH ×3 (08:05→17:10)
[2018-10-24] MEDS: FUROSEMIDE 20 MG TAB PO SCH (08:05)
[2018-10-24] MEDS: PANTOPRAZOLE SOD 40 MG TABEC PO SCH ×2 (08:05→17:10)
[2018-10-24 09:14] LABS: BODY FLUID APPEARANCE CLOUDY; BODY FLUID TYPE ASCITIES FLUID
[2018-10-24 09:15] LABS: RBC,BODY FLUID 6509 cells/uL; WBC,BODY FLUID 421 cells/uL
[2018-10-24 09:16] LABS: BODY FLUID COLOR STRAW
--- NOTE | 2018-10-24 09:21 | NUR ---
CM SPOKE TO PATIENT AND PATIENT DAUGHTER AT BEDSIDE REGARDING PATIENT DISCHARGE PLAN AND PLAN OF CARE. PATIENT AND PATIENT FAMILY CURRENTLY INDECISIVE WHETHER PATIENT WILL BE TRANSFERRING TO [facility] OR [facility]. PENDING RETURN CALL FROM JOMAR SANDOVAL CHOICE. JOMAR- DAUGHTER: [phone]. PENDING RETURN CALL FOR TO DISCUSS WHETHER PATIENT WILL BE TRANSFERRED TO [facility] OR [facility] FOR WORK UP DUE TO BEING ON LIVER TRANSPLANT LIST.
[2018-10-24] MEDS: SODIUM BICARBONATE 8.4% 100 ML in SODIUM CHLORIDE 0.45% 1,000 ML IV SCH (11:39)
--- NOTE | 2018-10-24 12:30 | NUR ---
CM SPOKE TO PATIENT PALMA HADLEY REGARDING TRANSFER TO EITHER [facility] OR [facility]. PATIENT PALMA AND HER BROTHER CHOSE [facility]. CM INITIATED TRANSFER WITH THE TRANSFER CENTER AND SPOKE TO PAZ. CHOICE LETTER SIGNED WITH TWO CONSENTS, MYSELF AND CM DIRECTOR SHIVANI ZHANG RN CM. CLINICAL (FACESHEET, H&P, 72 HR CLINICAL) SENT TO TRANSFER CENTER. PENDING AUTH AND BED FOR TRANSFER. [facility] [address] [place] [id number] (P)[phone] (F)[phone] MOT INITIATED AND GIVEN TO HAND UMBRELLA TIPPER.
[2018-10-24 12:48] LABS: LYMPHOCYTES,BODY FLUID 71 %; MONO/MACROPHG,BODY FLUID 2 %; NEUTROPHILS,BODY FLUID 6 %
[2018-10-24 12:51] LABS: OTHER CELLS,BODY FLUID 21 %
[2018-10-24 14:55] LABS: FOLATE 9.9 ng/mL (7.0-15.4)
--- NOTE | 2018-10-24 14:56 | NUR ---
PT C/O CONSTIPATION REQUESTING SUPPOSITORY NOTIFIED CHUYITA GRIMALDO. ORDERS FOR ORAL LAX GIVEN
[2018-10-24] MEDS ORDERED: BISACODYL 5 MG TAB EC PO ONE (15:30)
--- NOTE | 2018-10-24 15:47 | NUR ---
EDUCATED ABOUT IMM, SIGNED, FILED IN CHART, WITH COPY LEFT WITH FAMILY AT BEDSIDE.
--- NOTE | 2018-10-24 15:54 | NUR ---
GWENDOLYN SPOKE TO PATIENT PALMA HADLEY REGARDING PATIENT PLAN OF CARE AND DISCHARGE PLAN. PATIENT DAUGHTER / POA STATES THE PATIENT IS NOT CURRENTLY ON THE LIVER TRANSPLANT LIST BUT WAS LOOKING TO GET ON ONE IN [place]. PATIENT FAMILY WANTS A HIGHER LEVEL OF CARE THAT CAN ACCOMMODATE THE NEEDS OF THE PATIENT. IF [facility] IN THE MEDICAL CENTER DOES NOT ACCEPT PATIENT PLEASE PROVIDE ACUTE CARE FACILITIES TO THAT ARE ABLE TO TAKE PATIENT INSURANCE. JOMAR ALSO REQUESTS THAT ONE PERSON BE IN THE ROOM WITH THE PATIENT AT A TIME. PATIENT NEEDS REST PER FAMILY. PATIENT TO STAY IN [place] FOR NOW WITH MAJORITY OF DAUGHTERS UNTIL PATIENT IS HEALTHY AGAIN. POA #1: JOMAR: [phone] POA#2 (IF JOMAR UNABLE TO ANSWER): [phone]
[2018-10-24] MEDS: ONDANSETRON HCL 4 MG ORAL DISINTEGRATING TAB PO PRN ×2 (16:46→22:45)
[2018-10-24] MEDS ORDERED: MAGNESIUM SULFATE 2GM/50ML 50 ML IV ONE (17:00)
[2018-10-24] MEDS ORDERED: FUROSEMIDE INJ 10 MG/ML 2 ML VIAL IV ONE (17:30)
[2018-10-25] VITALS (16 sets, daily range): BP systolic 88–120; BP diastolic 49–64
--- NOTE | 2018-10-25 00:05 | NUR ---
SPOKE TO SEAN KIRAN WITH [facility]. PATIENT TRANSFER IS PENDING BED AVAILABILITY AND ACCEPTING MD AT [facility]. TRANSFER IS ALSO PENDING INSURANCE APPROVAL. ALL ABOVE COMMUNICATED WITH DR Doreen LEVY WHO SPOKE WITH FAMILY TO COMMUNICATE THE SAME. PER MD Doreen LEVY IF TRANSFER IS NOT ACCEPTED BY [facility] TOMORROW THEN TRANSFER SHOULD BE INITIATED WITH OUR [facility] IN THE [place]. PATIENT CHOICE LETTER DOES REFLECT SUCH A REQUEST PER POA PERMISSION. PM NURSE AWARE OF ALL OF THE ABOVE.
--- NOTE | 2018-10-25 00:14 | NUR ---
SPOKE TO DR. Doreen LEVY AT THIS TIME. NEW ORDERS RCV FOR ALBUMIN AND LACTULOSE.
[2018-10-25] MEDS ORDERED: ALBUMIN 25% 12.5GM 0.25 GM/ML BTL IV ONE (00:15)
[2018-10-25] MEDS: SODIUM BICARBONATE 8.4% 100 ML in SODIUM CHLORIDE 0.45% 1,000 ML IV SCH ×2 (04:02→13:22)
[2018-10-25 04:08] LABS: ALBUMIN 2.6 g/dL (3.5-5.0); ALBUMIN/GLOBULIN RATIO 1.1 (0.8-2.0); ANION GAP 14.3 mmol/L (8-16); CREATININE, SERUM 1.74 mg/dL (0.57-1.11); POTASSIUM 4.3 mmol/L (3.5-5.1)
[2018-10-25] MEDS: CEFEPIME 2 GM/NS 0.9% 100 ML 100 ML IV SCH ×2 (04:15→16:40)
[2018-10-25] MEDS: LEVOTHYROXINE SODIUM 25 MCG TABLET PO SCH (06:18)
[2018-10-25] MEDS ORDERED: CHLORPROMAZINE HCL 25 MG TAB PO PRN (07:00)
--- NOTE | 2018-10-25 07:29 | NUR ---
PAGED MD BLACKWELL FOR OK ON GIVING ALBUMIN AWAITING FOR CALL BACK
--- NOTE | 2018-10-25 07:33 | NUR ---
MD BLACKWELL OK DOSAGE ADM OF ALBUMIN
[2018-10-25] MEDS ORDERED: FUROSEMIDE INJ 10 MG/ML 2 ML VIAL IV ONE (07:45)
[2018-10-25] MEDS: MIDODRINE 2.5 MG TAB PO SCH ×3 (08:27→16:23)
[2018-10-25] MEDS: METOCLOPRAMIDE HCL 10 MG/2ML VIAL IV SCH ×4 (08:27→20:41)
[2018-10-25] MEDS: PANTOPRAZOLE SOD 40 MG TABEC PO SCH ×2 (08:27→16:23)
[2018-10-25] MEDS: FUROSEMIDE 20 MG TAB PO SCH (08:27)
[2018-10-25] MEDS: OYST-CAL-D 500MG TABLET PO SCH ×2 (08:27→16:23)
[2018-10-25] MEDS: LACTULOSE SYRUP 20 GM/30 ML UDC PO SCH ×2 (08:27→12:44)
[2018-10-25] MEDS: MEGESTROL ACETATE 40 MG TAB PO SCH ×2 (08:27→16:23)
[2018-10-25] MEDS: ALBUMIN 25% 12.5GM 0.25 GM/ML BTL IV SCH ×2 (08:27→14:08)
[2018-10-25] MEDS: SODIUM CHLORIDE 1 GM TAB PO SCH ×3 (08:28→20:41)
--- NOTE | 2018-10-25 11:42 | NUR ---
Call placed to transfer center at [facility]. Spoke with Vika at 1139. All information given. Will await for call back
--- NOTE | 2018-10-25 14:00 | NUR ---
JF DC PER MD BLACKWELL ORDER PT NOW ON DIAPER
--- NOTE | 2018-10-25 14:20 | NUR ---
PT FAM C/O OF FAM BEING DEHYDRATED AND WEAK PT HAD AROUND 5-6 BM OF DIARRHEA AFTER LACTULOSE ADMINISTRATION PT FAM REQUESTING AN ANTIDIARRHEAL. SPOKE TO DILLAN, ORDER FOR IMODIUM GIVEN V.S TAKEN AND 88/50 WITH HR OF 109, ALBUMIN IV DOSE STARTED AT THIS TIME WILL CONTINUE TO MONITOR CLOSELY
[2018-10-25] MEDS ORDERED: LOPERAMIDE HCL 2 MG CAP ONE (14:24)
[2018-10-25] MEDS ORDERED: LOPERAMIDE HCL 2 MG CAP PO ONE (14:35)
--- NOTE | 2018-10-25 14:37 | NUR ---
family of patient getting nervous about low BP. maps remaining in the 70's and albumin being given as volume finnish rubber with BP rising to 101/58. notified Merna NURSE ORTHO with Dr Henderson and received OK to transfer patient to ICU if condition deteriorates. will monitor status closely and proceed accordingly.
[2018-10-25] MEDS: ONDANSETRON HCL 4 MG ORAL DISINTEGRATING TAB PO PRN (15:25)
--- NOTE | 2018-10-25 16:27 | NUR ---
Spoke with Chantelle at [facility] and she informed that we are still pending insurance verification. Bed placement remains on hold. Staff to call back in the morning to verify
[2018-10-25] MEDS ORDERED: ALBUMIN 25% 12.5GM 50ML 100 ML IV ONE (20:00)
--- NOTE | 2018-10-25 20:19 | Consultation ---
DATE OF CONSULTATION: 10/25/2018 Pulmonary Critical Care Consultation CHIEF COMPLAINT: Low blood pressure and cirrhosis. HISTORY OF PRESENT ILLNESS: The patient is a 77-year-old woman. She has a history of cirrhosis, secondary to hemochromatosis. She has received frequent paracenteses in the past. Approximately two months ago, she relocated from [place] to [place] to be closer to her children. She came to the hospital on the with an elevated potassium. She required placement of a hemodialysis catheter and treatment of her hyperkalemia. She also received midodrine along with low-dose diuretics and lactulose for her liver disease. On the , she underwent a paracentesis and had almost 5 L of fluid had been removed. She has subsequently developed some hypotension and has required albumin. She also has hyponatremia and has required fluid restriction and sodium tablets. PAST MEDICAL HISTORY: 1. Cirrhosis, secondary to hemochromatosis. 2. Umbilical hernia. 3. Gastroesophageal reflux. 4. Hyponatremia. PAST SURGICAL HISTORY: Noncontributory. ALLERGIES: THERE ARE NO KNOWN DRUG ALLERGIES. FAMILY HISTORY: Family history is negative. Noncontributory. SOCIAL HISTORY: The patient recently relocated from [place]. She is not a drinker and she is not a smoker. REVIEW OF SYSTEMS: She has no fever. She has no headache. She complains of weakness. She has no neck pain. She has no chest pain. She is not complaining of difficulty breathing. She does have recurrent ascites. She has an umbilical hernia. She complains of pain and weakness in her legs. PHYSICAL EXAMINATION: VITAL SIGNS: The patient is afebrile. The blood pressure is 92/50 and the saturation is 100%. The pulse is 101. HEENT: Shows no facial swelling or erythema. The nasal mucosa is normal. The oropharynx is normal. LYMPHATIC: Shows no submandibular cervical or supraclavicular adenopathy. Auscultation of lungs shows decreased breath sounds at the bases. There is no wheezing. CARDIAC: Reveals a regular rate and rhythm with normal S1, S2. There are no murmurs or rubs. ABDOMEN: Distended. She does have ascites. EXTREMITIES: There is 1 to 2+ leg edema. NEUROLOGICAL: There is diffuse weakness, but no focal abnormalities. LABORATORY DATA: Sodium is 121. BUN to creatinine ratio is 30 to 1.74. The carbon dioxide is 21 and the hemoglobin is 8.1. The platelet count is 168. The PT is 17.3 and the INR is 1.35. The white blood cell count in the peritoneal fluid is 100 with 71% lymphocytes. IMPRESSION: 1. Cirrhosis with coagulopathy, ascites and portal hypertension. 2. Type 2 pattern renal syndrome. 3. Acute kidney injury. 4. Hyperkalemia. 5. Hyponatremia. 6. Coagulopathy. PLAN: 1. Continue albumin to maintain blood pressure. 2. Monitor urine output. 3. Continue lactulose and midodrine. 4. Case discussed with nursing staff on Med/Surg 1, nursing staff in ICU, and daughters. 5. Case was discussed with the patient. Bakari Ballesteros MD [facility]/MOD[facility] /[id number]
--- NOTE | 2018-10-25 21:05 | NUR ---
REPORT GIVEN TO TELLY BROOKS. PT TRANSFERRED TO ROOM 192 ICU. VITAL SIGNS STABLE
[2018-10-25] MEDS: OCTREOTIDE ACETATE 0.1 MG/ML 100MCG AMP SQ SCH (22:51)
[2018-10-26] VITALS (26 sets, daily range): BP systolic 71–123; BP diastolic 42–80
[2018-10-26 02:19] LABS: BILIRUBIN,URINE NEGATIVE (NEGATIVE); CLARITY,URINE CLEAR (CLEAR); COLOR,URINE YELLOW (YELLOW); KETONES,URINE 1+ (NEGATIVE); LEUKOCYTE ESTERASE ,URINE TRACE (NEGATIVE); NITRITE,URINE NEGATIVE (NEGATIVE); PROTEIN,URINE DIPSTICK 1+ (NEGATIVE); URINE UROBILINOGEN 0.2 mg/dL (0.2 - 1)
[2018-10-26] MEDS ORDERED: SODIUM CHLORIDE 0.9% 250ML 250 ML ONE ×3 (02:20→19:45)
[2018-10-26 02:43] LABS: BACTERIA,URINE MANY /HPF; EPITHELIAL CELLS,URINE MANY /LPF
--- NOTE | 2018-10-26 02:45 | NUR ---
Dr. Ballesteros also notified of spontaneous void x 1 and low urine output over last 2 hours after Nunez insertion.
--- NOTE | 2018-10-26 02:45 | NUR ---
Dr. Ballesteros notified of BP 70s/40s with MAP 53-58 and recent admin of albumin. Orders received for albumin IV. Updated MD on POC for paracentesis in AM. Per Dr. Ballesteros, hold parecentesis until BP more stable.
[2018-10-26] MEDS ORDERED: ALBUMIN 25% 12.5GM 0.25 GM/ML BTL IV ONE (03:00)
[2018-10-26] MEDS ORDERED: ALBUMIN 25% 12.5GM 0.25 GM/ML BTL IV SCH (03:00)
[2018-10-26] MEDS: CEFEPIME 2 GM/NS 0.9% 100 ML 100 ML IV SCH (04:03)
[2018-10-26 04:21] LABS: BASOPHILS # (AUTO) 0.1 (0.0-0.1); BASOPHILS % 0.8 % (0.0-1.0); EOSINOPHILS # (AUTO) 0.2 (0.0-0.4); EOSINOPHILS % 2.7 % (0.0-6.0); LYMPHOCYTES # (AUTO) 0.8 (1.0-3.2); LYMPHOCYTES % 12.9 % (18.0-39.1); MEAN CORPUSCULAR HGB CONC 36.5 g/dL (31-35); MONOCYTES % 16.3 % (4.4-11.3); NEUTROPHILS # (AUTO) 4.2 (2.1-6.9); PLATELET COUNT 114 x10e3/uL (140-360); RED BLOOD COUNT 1.77 x10e6/uL (3.6-5.1); RED CELL DISTRIBUTION WIDTH 13.2 % (11.7-14.4)
[2018-10-26 04:31] LABS: HEMOGLOBIN 6.2 g/dL (12.0-16.0)
[2018-10-26 04:38] LABS: ANION GAP 17.1 mmol/L (8-16); CALCIUM 8.9 mg/dL (8.4-10.2); CREATININE, SERUM 2.04 mg/dL (0.57-1.11); POTASSIUM 4.1 mmol/L (3.5-5.1)
--- NOTE | 2018-10-26 05:10 | NUR ---
Merna Martinez ON AIR DIRECTOR notified of critical Hgb level 6.2 ON AIR DIRECTOR ordered STAT recollect to verify results and to call with results. Merna ON AIR DIRECTOR also notified of low urine output. No new orders received.
--- NOTE | 2018-10-26 06:09 | Diagnostic Imaging Report ---
EXAMINATION: CHEST SINGLE (PORTABLE) COMPARISON: Chest x-ray/ INDICATION: ^Cirrhosis DISCUSSION: Frontal view of the chest obtained at 0532 hours. HEART AND MEDIASTINUM: Heart is top normal in size and stable. Calcifications of the aortic arch LINES: None. LUNGS: Low lung volumes with exaggerated central pulmonary vascular prominence. No pneumonia or interstitial edema. PLEURA: No large effusions. No pneumothorax. BONES AND SOFT TISSUES: No focal osseous lesion. The soft tissues are normal. IMPRESSION: Low lung volumes. No acute cardiopulmonary process. Signed by: Dr. Casey Melara MD on 10/26/2018 6:06 AM
[2018-10-26] MEDS: LEVOTHYROXINE SODIUM 25 MCG TABLET PO SCH (06:10)
[2018-10-26] MEDS: OCTREOTIDE ACETATE 0.1 MG/ML 100MCG AMP SQ SCH ×3 (06:10→20:44)
[2018-10-26 06:30] LABS: BASOPHILS # (AUTO) 0.1 (0.0-0.1); BASOPHILS % 0.9 % (0.0-1.0); EOSINOPHILS # (AUTO) 0.2 (0.0-0.4); EOSINOPHILS % 2.9 % (0.0-6.0); LYMPHOCYTES # (AUTO) 0.6 (1.0-3.2); LYMPHOCYTES % 9.6 % (18.0-39.1); MEAN CORPUSCULAR HEMOGLOBIN 34.9 pg (28-32); MEAN CORPUSCULAR HGB CONC 36.1 g/dL (31-35); MEAN CORPUSCULAR VOLUME 96.8 fL (81-99); MONOCYTES # (AUTO) 1.1 (0.2-0.8); MONOCYTES % 16.1 % (4.4-11.3); NEUTROPHILS # (AUTO) 4.6 (2.1-6.9); NEUTROPHILS % 70.2 % (38.7-80.0); PLATELET COUNT 113 x10e3/uL (140-360); RED BLOOD COUNT 1.89 x10e6/uL (3.6-5.1); RED CELL DISTRIBUTION WIDTH 13.3 % (11.7-14.4)
[2018-10-26 06:32] LABS: HEMATOCRIT 18.3 % (34.2-44.1); HEMOGLOBIN 6.6 g/dL (12.0-16.0)
--- NOTE | 2018-10-26 06:34 | NUR ---
Voicemail left at [address] Henderson/Merna regarding critical Hgb 6.6 for recollection.
[2018-10-26 06:35] LABS: ALBUMIN 3.7 g/dL (3.5-5.0); ALBUMIN/GLOBULIN RATIO 2.5 (0.8-2.0); CALCIUM 8.8 mg/dL (8.4-10.2); CREATININE, SERUM 2.07 mg/dL (0.57-1.11)
[2018-10-26] MEDS ORDERED: SODIUM CHLORIDE 0.9% 250ML 250 ML IV ONE (07:15)
[2018-10-26] MEDS ORDERED: FUROSEMIDE INJ 10 MG/ML 2 ML VIAL IV PRN (07:15)
--- NOTE | 2018-10-26 07:15 | NUR ---
Orders received from Miguelangel Milligan NP for blood transfusion regarding critical Hgb.
--- NOTE | 2018-10-26 08:41 | NUR ---
Pt transferred from MS1 to ICU for higher level of care. Will require new orders to resume PT. Thank you. Addendum: 10/26/18 at 0844 by GRETTA LONG LARRIMAN Amended: Links added.
[2018-10-26] MEDS: MIDODRINE 2.5 MG TAB PO SCH ×3 (08:42→16:00)
[2018-10-26] MEDS: METOCLOPRAMIDE HCL 10 MG/2ML VIAL IV SCH ×4 (08:42→20:44)
[2018-10-26] MEDS: PANTOPRAZOLE SOD 40 MG TABEC PO SCH ×2 (08:43→16:47)
[2018-10-26] MEDS: OYST-CAL-D 500MG TABLET PO SCH ×2 (08:43→16:46)
[2018-10-26] MEDS: SODIUM CHLORIDE 1 GM TAB PO SCH ×3 (08:43→20:48)
[2018-10-26] MEDS: MEGESTROL ACETATE 40 MG TAB PO SCH ×2 (08:43→16:46)
[2018-10-26] MEDS: ALBUMIN 25% 12.5GM 0.25 GM/ML BTL IV SCH ×3 (08:43→20:44)
[2018-10-26] MEDS: FUROSEMIDE 20 MG TAB PO SCH ×2 (09:00→13:00)
--- NOTE | 2018-10-26 09:44 | NUR ---
Spoke with Dr Valencia who advises to place a trialysis catheter. Dr Adriana cardona.
[2018-10-26] MEDS ORDERED: VASOPRESSIN 100 UNIT in DEXTROSE 5% 100ML 95 ML IV SCH (09:45)
--- NOTE | 2018-10-26 10:46 | Diagnostic Imaging Report ---
EXAMINATION: CHEST XRAY LINE PLACEMENT INDICATION: COMPARISON: FINDINGS: TUBES and LINES: Interval placement of right internal jugular dialysis catheter terminating near the superior cavoatrial junction. LUNGS: The lung volumes remain low. There is perihilar fullness and indistinctness of the pulmonary vasculature. PLEURA: No large pleural effusion. No pneumothorax. HEART AND MEDIASTINUM: Stable mild cardiac enlargement. Atherosclerotic calcifications of the thoracic aorta. BONES AND SOFT TISSUES: No acute fracture or dislocation. UPPER ABDOMEN: No free air under the diaphragm. IMPRESSION: Interval placement of right internal jugular trialysis catheter terminating at the superior cavoatrial junction. Low lung volumes with mild interstitial pulmonary edema. Signed by: Ritu Cordero MD on 10/26/2018 10:42 AM
--- NOTE | 2018-10-26 10:52 | Diagnostic Imaging Report ---
PROCEDURE:Ultrasound guided central venous catheter placement COMPARISON:Chest radiograph 10/26/2018. INDICATIONS:Anemia, acute kidney injury Post procedure diagnosis: Anemia, acute kidney injury Sedation/anesthesia: None Additional medications: Lidocaine 1% for local anesthesia Complications: No immediate Estimated blood loss: Minimal Blood products administered: None Implants/grafts: 13 [place] Citizen 15 cm triple-lumen high flow central venous catheter Specimens: None Condition at completion: Guarded Disposition: Remain in ICU Procedure in detail: Informed consent was obtained from the next of kin and documented in the medical record. The patient was placed in the supine position on the hospital bed. Preliminary sonographic evaluation confirmed patency of the right internal jugular vein, evidenced by compressibility. The right cervical region was then prepped and draped in standard sterile fashion. 1% lidocaine was infiltrated into the skin and subcutaneous tissues for local anesthesia. Then under continuous sonographic guidance an 18 gauge singlewall needle was advanced into the right internal jugular vein. A permanent sonographic image was stored in the medical record. A 0.035 guidewire was then advanced centrally with continuous cardiac rhythm monitoring. The needle was removed over the wire and the tract was serially dilated. Then a 13 [place] Citizen 15 cm triple-lumen hypo-central venous catheter was advanced over the wire to full depth. The wire was removed. Each lumen showed adequate bidirectional flow and was flushed with sterile saline. The catheter was secured to the skin with monofilament nylon suture and a sterile dressing was applied. The patient tolerated the procedure well without immediate complication. FINDINGS:Patent right internal jugular vein. CONCLUSION: Successful placement of a 13 [place] Citizen, 15 cm triple-lumen high flow central venous catheter (Trialysis catheter) via a right internal jugular approach under sonographic guidance. Post procedure chest radiograph will be obtained to confirm line positioning prior to use. Dictated by: Sandeep Wright M.D. on 10/26/2018 at 10:56 Electronically approved by: Sandeep Wright M.D. on 10/26/2018 at 10:56
--- NOTE | 2018-10-26 10:52 | Diagnostic Imaging Report ---
PROCEDURE:Ultrasound guided central venous catheter placement COMPARISON:Chest radiograph 10/26/2018. INDICATIONS:Anemia, acute kidney injury Post procedure diagnosis: Anemia, acute kidney injury Sedation/anesthesia: None Additional medications: Lidocaine 1% for local anesthesia Complications: No immediate Estimated blood loss: Minimal Blood products administered: None Implants/grafts: 13 Bahamian 15 cm triple-lumen high flow central venous catheter Specimens: None Condition at completion: Guarded Disposition: Remain in ICU Procedure in detail: Informed consent was obtained from the next of kin and documented in the medical record. The patient was placed in the supine position on the hospital bed. Preliminary sonographic evaluation confirmed patency of the right internal jugular vein, evidenced by compressibility. The right cervical region was then prepped and draped in standard sterile fashion. 1% lidocaine was infiltrated into the skin and subcutaneous tissues for local anesthesia. Then under continuous sonographic guidance an 18 gauge singlewall needle was advanced into the right internal jugular vein. A permanent sonographic image was stored in the medical record. A 0.035 guidewire was then advanced centrally with continuous cardiac rhythm monitoring. The needle was removed over the wire and the tract was serially dilated. Then a 13 Bahamian 15 cm triple-lumen hypo-central venous catheter was advanced over the wire to full depth. The wire was removed. Each lumen showed adequate bidirectional flow and was flushed with sterile saline. The catheter was secured to the skin with monofilament nylon suture and a sterile dressing was applied. The patient tolerated the procedure well without immediate complication. FINDINGS:Patent right internal jugular vein. CONCLUSION: Successful placement of a 13 Bahamian, 15 cm triple-lumen high flow central venous catheter (Trialysis catheter) via a right internal jugular approach under sonographic guidance. Post procedure chest radiograph will be obtained to confirm line positioning prior to use. Dictated by: Sandeep Wright M.D. on 10/26/2018 at 10:56 Electronically approved by: Sandeep Wright M.D. on 10/26/2018 at 10:56
--- NOTE | 2018-10-26 11:17 | Progress Note ---
DATE: 10/26/2018 SUBJECTIVE: The patient was transferred to the ICU yesterday. She is still hypotensive with a blood pressure of 77/45 after receiving albumin intermittently during the night. Her hemoglobin is 6.6 this morning and she is scheduled to receive packed red blood cells. The patient also complains of worsening ascites. She does not have fever. PHYSICAL EXAMINATION: VITAL SIGNS: The patient is afebrile. The blood pressure is 86/50 and the saturation is 98% on 2 L. HEENT: Shows no facial swelling or erythema. CARDIAC: Reveals a regular rate and rhythm with normal S1, S2. There are no murmurs or rubs heard. LUNGS: Auscultation of lungs reveals decreased breath sounds at the bases. ABDOMEN: Distended and there is significant ascites. EXTREMITIES: There is mild leg edema. LABORATORY DATA: Hemoglobin is 6.6 and the platelet count is 113. The white blood cell count is 6.6. The INR is 1.35. The BUN to creatinine ratio is 36:2.07. The sodium is 126. IMPRESSION: 1. 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 2. Type 2 hepatorenal syndrome. 3. Acute kidney injury. 4. Anemia secondary to chronic blood loss. 5. Hyponatremia. 6. Coagulopathy. PLAN: 1. The patient received 2 units of packed red blood cells today. 2. She will also have her diuretics held because of the low blood pressure. 3. We will continue the midodrine. 4. Continue to monitor creatinine. 5. Hold off on large volume paracentesis until the blood pressure stable. 6. Case discussed with three of the 13 children and with the patient. 7. Case discussed with nursing staff. 8. Case discussed with [place]. Greater than 35 minutes in direct critical care time. Bakari Ballesteros MD LM/GEORGINA /[id number]
[2018-10-26] MEDS: SODIUM BICARBONATE 8.4% 100 ML in SODIUM CHLORIDE 0.45% 1,000 ML IV SCH ×2 (12:00→21:44)
[2018-10-26] MEDS: ONDANSETRON HCL 4 MG ORAL DISINTEGRATING TAB PO PRN ×2 (13:13→22:29)
[2018-10-26] MEDS ORDERED: ALBUTEROL/IPRATROPIUM 3 ML NEB NEB PRN (13:15)
--- NOTE | 2018-10-26 13:17 | NUR ---
1140 [facility] called to deny the patient transfer; states that the insurance provided is out of network. [facility] called around the same time and stated they could not verify the benefits until Monday (10-29-2018); shelter case manager Damian notified as well as the patient's brother. Samantha Perez, RN also aware.
[2018-10-26] MEDS ORDERED: FUROSEMIDE INJ 10 MG/ML 2 ML VIAL IV ONE (14:00)
[2018-10-26 14:13] LABS: ABG PCO2 31 mmHg (41-51); ABG PO2 74 mmHg (80-105)
[2018-10-26 14:14] LABS: ABG HCO3 19 mmol/L (23-28)
--- NOTE | 2018-10-26 14:33 | NUR ---
SW WAS APPROACHED BY SON AND ASKING WHAT IS TAKING SO LONG WITH TRANSFER. WITH ASSISTANCE FROM KHLOE PA, CALLS WERE MADE AND FOUND TO BE DENIED FROM [facility] AND TO FOLLOW UP ON MONDAY. DAUGHTER CAME IN [place] AND SPOKE WITH DOCTOR VENKATESH. DAUGHTER FROM [place] IS THE POA AND STATES SHE DOESNT WANT THE OTHER FAMILY MEMBER CAUSING ISSUES WITH STAFF, SHE STATES HER MOTHER HAS BEEN ON TRANSPLANT LIST IN [place] FOR 3 WEEKS PRIOR TO COMING HERE. [facility] WAS ONLY COMING HERE FOR A 1 WEEK VACATION BUT MOTHER HAD TO COME TO HOSPITAL. SHE WANTS TO CONTINUE CARE HER AND IF SHE STABLIZES THEN WILL SEE ABOUT TAKING TO THE TRANSPLANT CENTER AT [facility].
--- NOTE | 2018-10-26 16:23 | NUR ---
jennifer pompa removed 2 bottles ~2L of fluid during paracentesis
--- NOTE | 2018-10-26 16:46 | Diagnostic Imaging Report ---
Procedure: Ultrasound-guided diagnostic and therapeuticparacentesis rotary drill rig operator: Ritu Cordero MD Pre-operative diagnosis: Ascites Post-operative diagnosis: Ascites Conscious Sedation: The patient's heart rate and pulse oximetry were continuously monitored by the IR nurse. Additional Medications: Lidocaine 1% for local anesthesia Estimated blood loss: Minimal Specimens: 2000 cc of serous ascites Implants: None TECHNIQUE/FINDINGS: Informed consent was obtained from the patient and documented in the medical record. The patient was placed in the supine position. Initial ultrasound demonstrated ascites. The right lower abdomen was prepped and draped in standard sterile fashion. 1% lidocaine was infiltrated into the skin and subcutaneous tissues for local anesthesia. Then under continuous sonographic guidance, a 5 Fr catheter was advanced into the peritoneal space. The catheter was connected to vacuum bottle with subsequent evacuation of 2000 cc of serous fluid. The catheter was removed. Dermabond and sterile dressing was applied. Sample was sent to the lab. The patient tolerated the procedure well. IMPRESSION: Ultrasound-guided paracentesis with removal of 2000 cc of serous fluid. Signed by: Ritu Cordero MD on 10/26/2018 4:43 PM
--- NOTE | 2018-10-26 17:30 | NUR ---
Dr. Haq at bedside, discusses condition and code status with daughter. Daughter Angelika comes back after family discussion and they want every thing done for their mother. They would also like to transfer her downtown even without insurance approval. Nursing management notified and dr. haq and dr. clemente snowden made aware.
[2018-10-26 17:40] LABS: BODY FLUID APPEARANCE SL.CLOUDY; BODY FLUID COLOR YELLOW; BODY FLUID TYPE PLEURAL
[2018-10-26] MEDS ORDERED: PHYTONADIONE 10 MG/ML AMP SQ ONE (17:45)
[2018-10-26 17:53] LABS: INR 1.86; PROTHROMBIN TIME 22.1 seconds (11.9-14.5)
[2018-10-26 17:55] LABS: PARTIAL THROMBOPLASTIN TIME 47.9 seconds (23.8-35.5)
[2018-10-26] MEDS ORDERED: FUROSEMIDE INJ 10 MG/ML 4 ML VIAL IV ONE (18:00)
[2018-10-26 18:02] LABS: RBC,BODY FLUID 2695 cells/uL; WBC,BODY FLUID 55 cells/uL
--- NOTE | 2018-10-26 19:31 | NUR ---
[facility] called to notify of possible dialysis 10/27/18, instructions given to call Dr. Valencia in morning for orders. Dialysis center aware of pt's possible transfer of hospitals.
--- NOTE | 2018-10-26 22:14 | NUR ---
spoke with transfer center and information given concerning transfer, states they will have their physician call Dr. Soni Oconnor
--- NOTE | 2018-10-26 22:35 | NUR ---
Spoke to transfer center at [facility], states they are waiting on a call from there physician to speak with ours
--- NOTE | 2018-10-26 22:52 | NUR ---
Notified of pt's acceptance to [facility] by Dr. Soni Oconnor. Awaiting phone call from [facility] with bed placement. Family notified.
--- NOTE | 2018-10-26 22:58 | NUR ---
[facility] physician spoke with Dr. Soni Oconnor, pt. was accepted by the receiving physician
--- NOTE | 2018-10-26 23:15 | NUR ---
spoke with transfer center, states they have a bed and waiting on it to be cleaned, will call with bed and approval when that is done
[2018-10-27] VITALS: BP 120/67
[2018-10-27 00:06] LABS: BASOPHILS # (AUTO) 0.1 (0.0-0.1); BASOPHILS % 0.8 % (0.0-1.0); EOSINOPHILS % 0.2 % (0.0-6.0); HEMATOCRIT 26.8 % (34.2-44.1); HEMOGLOBIN 9.6 g/dL (12.0-16.0); LYMPHOCYTES # (AUTO) 0.6 (1.0-3.2); LYMPHOCYTES % 4.3 % (18.0-39.1); MEAN CORPUSCULAR HEMOGLOBIN 33.3 pg (28-32); MEAN CORPUSCULAR HGB CONC 35.8 g/dL (31-35); MEAN CORPUSCULAR VOLUME 93.1 fL (81-99); MONOCYTES # (AUTO) 1.2 (0.2-0.8); MONOCYTES % 9.1 % (4.4-11.3); NEUTROPHILS # (AUTO) 10.7 (2.1-6.9); NEUTROPHILS % 84.8 % (38.7-80.0); PLATELET COUNT 119 x10e3/uL (140-360); RED BLOOD COUNT 2.88 x10e6/uL (3.6-5.1); RED CELL DISTRIBUTION WIDTH 14.4 % (11.7-14.4)
--- NOTE | 2018-10-27 00:48 | NUR ---
Report called to Rm @ [facility] 7S1 bed 2. House sup calling EMS. Family aware and in room.
[2018-10-27 01:00] VITALS: BP 116/73
[2018-10-27 01:32] VITALS: BP 116/74
--- NOTE | 2018-10-27 01:33 | NUR ---
Pt transferred via EMS. Family at bedside with pt's belongings.
--- NOTE | 2018-10-27 21:04 | Discharge Summary ---
ADMISSION DIAGNOSES: Fluid overload, secondary to cirrhosis, hypokalemia, cirrhosis, gastroesophageal reflux disease, hypertension, urinary tract infection, present on admission. Hepatorenal syndrome. Acute kidney injury versus chronic kidney disease 3. DISCHARGE DIAGNOSES: Fluid overload, secondary to cirrhosis, hypokalemia, cirrhosis, gastroesophageal reflux disease, hypertension, urinary tract infection, present on admission. Hepatorenal syndrome. Acute kidney injury versus chronic kidney disease 3. Escherichia coli urinary tract infection, present on admission. PAST MEDICAL HISTORY: The patient has a history of cirrhosis, abdominal hernia, GERD, hypertension. PAST SURGICAL HISTORY: Cholecystectomy, hysterectomy. FAMILY HISTORY: The patient's sister and nieces have cancer. SOCIAL HISTORY: Noncontributory. HOSPITAL COURSE: A 77-year-old female, who lives in [place] and has been visiting her kids the last three weeks. She usually had the paracentesis one time a month. Per the daughter at the bedside, the patient has been having increased shortness of breath and abdominal distention, so she brought her to the ER. She also complains of nausea and vomiting for the last month. On admission, chest x-ray showed dense nodular opacities adjacent to the cardiac apex, may reflect costochondral classification or calcified granulomata. The patient had a tunneled dialysis catheter placed due to hyperkalemia with a potassium of 8.1. The patient was started on dialysis per Nephrology recommendation. CT of the abdomen showed cirrhosis with portal hypertension, evidenced by large volume ascites and probable esophageal varices. Probable hepatic and left renal cyst incompletely evaluated without IV contrast. The patient underwent a paracentesis on 10/22/2018, with 4.8 L removed. Due to intermittent confusion a CT of the brain was done, which was negative. Urine culture came back positive for E. coli. Blood culture was negative. Ascites culture was negative. The patient became hyponatremic after the paracentesis, so she was started on t.i.d. sodium tablet per Nephrology recommendation. Her potassium came down after one or two dialysis treatments, so the patient's dialysis catheter was removed. Per family request, they would like to transfer to [facility] to try to speak with the skin piler regarding the patient's liver failure, so Dr. Oconnor arranged for transfer to the [facility]. The patient was accepted today. Vital signs are stable. The patient is afebrile. Dictated by Merna Martinez, COTTON DISPATCHER MD JACQUES Frankel/GEORGINA /[id number]
== END 2018-10-27 01:30 | disposition short-term general hospital (02) | DRG 432 ==
LOC: ER 12:21 → ERHOLD 16:22 → ICU 10-20 00:12 → MED/SURG 10-21 13:35 → ICU 10-25 21:03
PROVIDERS: ADMIT Internal Medicine; ATTEND Internal Medicine
PROC: 5A1D70Z Performance of Urinary Filtration, Intermittent, Less than 6 Hours Per Day (ICD-10-PCS; 2018-10-19)
PROC: 0W9G3ZZ Drainage of Peritoneal Cavity, Percutaneous Approach (ICD-10-PCS; 2018-10-22)
PROC: 02HV33Z Insertion of Infusion Device into Superior Vena Cava, Percutaneous Approach (ICD-10-PCS; 2018-10-24)
PROC: 0W9G3ZZ Drainage of Peritoneal Cavity, Percutaneous Approach (ICD-10-PCS; principal; 2018-10-26)
PROC: 02HV33Z Insertion of Infusion Device into Superior Vena Cava, Percutaneous Approach (ICD-10-PCS; 2018-10-26)
PROC: 30243N1 Transfusion of Nonautologous Red Blood Cells into Central Vein, Percutaneous Approach (ICD-10-PCS; 2018-10-26)
DX: K74.60 Unspecified cirrhosis of liver (principal); K76.7 Hepatorenal syndrome; R18.8 Other ascites; N39.0 Urinary tract infection, site not specified; I85.10 Secondary esophageal varices without bleeding; N17.9 Acute kidney failure, unspecified; E87.1 Hypo-osmolality and hyponatremia; D68.9 Coagulation defect, unspecified; K76.6 Portal hypertension; E87.6 Hypokalemia; K21.9 Gastro-esophageal reflux disease without esophagitis; B96.20 Unspecified Escherichia coli [E. coli] as the cause of diseases classified elsewhere; I12.9 Hypertensive chronic kidney disease with stage 1 through stage 4 chronic kidney disease, or unspecified chronic kidney disease; N18.3 Chronic kidney disease, stage 3 (moderate); N28.1 Cyst of kidney, acquired; E87.5 Hyperkalemia; D50.0 Iron deficiency anemia secondary to blood loss (chronic)
CPT/HCPCS: 36415; 36556; 36600; 49083; 51700; 70450; 71045; 74018; 74176; 74470; 76937; 77001; 80048; 80053; 80076; 81001; 82105; 82140; 82550; 82553; 82570; 82607; 82728; 82746; 82805; 82945; 82948; 83540; 83615; 83690; 83735; 83880; 84132; 84157; 84300; 84439; 84443; 84466; 84478; 84484; 85025; 85045; 85610; 85730; 86704; 86705; 86706; 86707; 86850; 86900; 86920; 87040; 87070; 87071; 87086; 87186; 87205; 87340; 88112; 88305; 89051; 93005; 94640; 96361; 97139; 99285; C1729; C1769; J0610; J1644; J1817; J1940; J2150; J2354; J2405; J2765; J3430; J3475; J7030; J7050; J7070; J7799; P9016; Q0162